=== PATIENT | male | born 1975 ===

== ENCOUNTER 2023-07-11 07:13 | Day surgery (SDC) | payer OTHER ==
[~2023-07-11] VITALS: Ht 170.2 cm; Wt 158.8 kg
[2023-07-11] MEDS ORDERED: MEPERIDINE 100 MG INJ. 100 MG/ML VIAL ONE (07:39)
[2023-07-11] MEDS ORDERED: SIMETHICONE 40 MG/0.6 ML ML ONE (07:39)
[2023-07-11] MEDS ORDERED: MIDAZOLAM HCL 5 MG/5 ML VIAL ONE (07:40)
[2023-07-11 11:48] VITALS: O2SAT 98
[2023-07-11 14:17] VITALS: BP_SYST 154; PULSE 80; RESP 20; TEMP 97
== END 2023-07-11 10:25 | disposition home or self-care (01) ==
LOC: SDS 07:13 → SMU 07:16 → SDS 10:25
PROVIDERS: ATTEND Student in an Organized Health Care Education/Training Program
DX: R19.5 Other fecal abnormalities (principal); K62.1 Rectal polyp; K63.5 Polyp of colon; E11.9 Type 2 diabetes mellitus without complications; Z79.84 Long term (current) use of oral hypoglycemic drugs; Z79.899 Other long term (current) drug therapy
CPT/HCPCS: 45380; 45385; 99152; 82948; 88305; 99153; G0378; J2250; J2175